=== PATIENT | male | born 1985 | race Caucasian/White ===

== ENCOUNTER 2018-11-16 10:30 | Outpatient (RCR) | payer OTHER, SELFPAY ==
[2018-08-17 09:17] VITALS: BMI 36.2
--- NOTE | 2018-09-22 11:08 | HP.PTEVAL ---
Patient's Visit Information CARLOS ENRIQUE SANCHEZ is a 33 year old M referred to Physical Therapy by Lars Paul MD with a diagnosis of BACK AND LEG PAIN. Date of Evaluation: 09/22/18 Physical Therapist: Raya Cadena PT, Cert MDT - Visit Plan Frequency: 2-3x /Week Duration: 4-6 Weeks Plan: AQUATIC THERAPY FOR PAIN RELIEF, POSTURE CORRECTION/STRENGTHENING, INSTRUCTION IN APPROPRIATE BODY MECHANICS AND ACTIVITY MODIFICATIONS. DLS STARTING WITH A NEUTRAL SPINE PROGRESSING ROM TOLERATED. ROSEANN LE ROM, STRETCHING AND STRENGTHENING. HEP INSTRUCTION. 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 TRAVELS BETWEEN THE STORES. PLAYS BASKETBALL. GOLF. Disability: NO. Present symptoms: LOW BACK, RIGHT BUTTOCK/HIP, RIGHT THIGH AND RIGHT LEG PAIN. NUMBNESS AND TINGLING IN RIGHT LEG TOO. NO LLE SX'S. Present since: JUNE 2017. END OF MAR 2018 AGAIN. SAME SINCE MAR. Pain Scale: WORST 7/10, LEAST 3/10. Currently: 3/10. Commenced as a result of: NO APPARENT REASON. Symptoms at onset: RIGHT LEG. Worse: PROLONGED SITTING, ANYTHING FOR A LONG PERIOD OF TIME. WEED EATING. ANY STRENUOUS WORK. Better: LYING DOWN. Disturbed sleep: YES. Previous history/Previous treatment: ONE CHIRO VISIT LAST EPISODE - HELPED. ABOUT A MONTH AGO WENT TO DR. ASHRAF ABOUT 6 TIMES - DIDN'T HELP. DR. PAUL - MATILDE LAST - DEFINATELY HELPED A LOT FOR ABOUT 3 DAYS AND IS STILL BETTER THAN IT WAS BEFORE THE INJECTION. NO OTHER SHOTS PLANNED AT THIS POINT. FOLLOW UP WITH TY PAUL PENDING THE END OF THIS MONTH THOUGH. Coughing/sneezing/straining: POSITIVE. Gait: BETTER SINCE SHOT BUT STILL HAS SOME DIFFICULTY GETTING UP STRAIGHT AND INITIATING GAIT AFTER SITTING. FINE AFTER A FEW STEPS. Difficulty initiating urinatin: NO. Accidents: NO. Unexplained weight loss: NO. Imaging: LUMBAR X-RAY - X-Ray Report: Impression. Impression: Patients Name: CARLOS ENRIQUE SANCHEZ. : 1985. Views Submitted: a routine lumbar series was accomplished on 08/17/18 at [facility]. The lumbar series reveals in the AP view right spinous process rotation from L2 to L5. The clement and sacrum appear to be level. There is a 6th lumbar vertebra, transitional segment. The lateral lumbar view demonstrates a mildly hypolordotic lumbar spine. The disc space at S1 is decreased. Transverse processes appear to be consistent bilaterally. No indication of fracture or instability. IMPRESSION: 1. Transitional lumbar vertebra. Dictated by. Performing Provider: Estela Ashraf. MRI HAS BEEN ORDERED BY DR. PAUL AND PENDING. PMH: UNREMARKABLE. Recent major surgery: NO. PLOF (Prior Level of Function): UNLIMITED. PLAYING BASKETBALL A COUPLE TIMES A WEEK UNTIL APR 2018 - Objective Sitting/Standing Posture: POOR. Lordosis: NORMAL. Lateral shift: NO. Relevant shift: N/A. Active Correction of posture: WORSE. Other Observations: INDEP GAIT WITH GOOD CADANCE. DIFFICULTY TRANSITIONING FROM SIT TO STAND AND INITIATING GAIT. Motor deficit: ROSEANN LE'S 5/5 WITH MMT'ING EXCEPT RIGHT HIP 4-/5, LEFT 4/5. Sensory deficit: ROSEANN LE LIGHT TOUCH SENSATION INTACT AND SYMMETRICAL. ROM deficit: TIGHT ROSEANN LE HS'S RIGHT > LEFT. Reflexes: 2/3 ROSEANN LE'S. Dural Signs: NEGATIVE LEFT AND POSITIVE RIGHT LE. Lumbar mvmt loss: flex - MIN - RIGHT LOW BACK PAIN. ext - MOD - CENTRAL LB TIGHTNESS. R SG - MOD. L SG - MIN. Core strength: POOR. Palpation: TENDERNESS WITH PALPATION OF THE L45S1 REGION. - Goals Goal 1:: DECREASE C/O BACK AND LEG PAIN Goal Time Frame: 4-6 Weeks Goal 2:: IMPROVE PERSONAL CARE, LIFTING, SITTING, STANDING, SLEEP SOCIAL LIFE, TRAVEL AND WORK FUNCTION. Goal Time Frame: 4-6 Weeks Goal 3:: INSTRUCT IN PROPHYLAXIS Goal Time Frame: 4-6 Weeks - Rehabilitation Potential Rehabilitation Potential: Fair - Anticipated Interventions Patient/Client Instruction: Educate patient on: Condition, Plan of Care, Risk Factors, Benefits of Fitness Program For the Purpose of:: To improve self management Therapeutic Exercise to Include: Strength training, Body mechanics, Postural training, Dynamic Lumbar Stabilization For the Purpose of:: To decrease pain, To improve muscle performance and motor function, To increase tolerance to activity/condition/position, To improve ability of physical actions for home/community/work/leisure Thank you for the opportunity to evaluate your patient. For Medicare and Medicare HMO plans, please review the plan of care and approve it. It will need to be FAXED BACK to us at [phone] for Medicare purposes. For Medicare only, by signing this I certify the plan of care. Please let me know if there are questions or concerns regarding this plan of care. Physician Signature: Date:
--- NOTE | 2018-10-22 11:09 | HP.PTEVAL_ITS ---
Patient's Visit Information CARLOS ENRIQUE SANCHEZ is a 33 year old M referred to Physical Therapy by Lars Paul MD with a diagnosis of BACK AND LEG PAIN. Date of Evaluation: 09/22/18 Physical Therapist: Raya Cadena PT, Cert MDT - Visit Plan Frequency: 2-3x /Week Duration: 4-6 Weeks Plan: CONTINUE AQUATIC THERAPY 3 TIMES A WEEK X 3 WEEKS AND CONSIDER TRANSITION TO LAND PT BASED ON RESULTS OF NEXT MATILDE. PATIENT IS AGREEABLE. 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 PLAYS BASKETBALL. GOLF. Disability: NO. Present symptoms: LOW BACK, RIGHT BUTTOCK/HIP, RIGHT THIGH AND RIGHT LEG PAIN. NUMBNESS AND TINGLING IN RIGHT LEG TOO. NO LLE SX'S. Present since: JUNE 2017. END OF MAR 2018 AGAIN. SAME SINCE MAR. Pain Scale: WORST 7/10, LEAST 3/10. Currently: 3/10. Commenced as a result of: NO APPARENT REASON. Symptoms at onset: RIGHT LEG. Worse: PROLONGED SITTING, ANYTHING FOR A LONG PERIOD OF TIME. WEED EATING. ANY STRENUOUS WORK. Better: LYING DOWN. Disturbed sleep: YES. Previous history/Previous treatment: ONE CHIRO VISIT LAST EPISODE - HELPED. ABOUT A MONTH AGO WENT TO DR. ASHRAF ABOUT 6 TIMES - DIDN'T HELP. DR. PAUL - MATILDE LAST TU - DEFINATELY HELPED A LOT FOR ABOUT 3 DAYS AND IS STILL BETTER THAN IT WAS BEFORE THE INJECTION. NO OTHER SHOTS PLANNED AT THIS POINT. FOLLOW UP WITH TY PAUL PENDING THE END OF THIS MONTH THOUGH. Coughing/sneezing/straining: POSITIVE. Gait: BETTER SINCE SHOT BUT STILL HAS SOME DIFFICULTY GETTING UP STRAIGHT AND INITIATING GAIT AFTER SITTING. FINE AFTER A FEW STEPS. Difficulty initiating urinatin: NO. Accidents: NO. Unexplained weight loss: NO. Imaging: LUMBAR X-RAY - X-Ray Report: Impression. Impression: Patients Name: CARLOS ENRIQUE SANCHEZ. : 1985. Views Submitted: a routine lumbar series was accomplished on 08/17/18 at [facility]. The lumbar series reveals in the AP view right spinous process rotation from L2 to L5. The clement and sacrum appear to be level. There is a 6th lumbar vertebra, transitional segment. The lateral lumbar view demonstrates a mildly hypolordotic lumbar spine. The disc space at S1 is decreased. Transverse processes appear to be consistent bilaterally. No indication of fracture or instability. IMPRESSION: 1. Transitional lumbar vertebra. Dictated by. Performing Provider: Estela Ashraf. MRI HAS BEEN ORDERED BY DR. PAUL AND PENDING. PMH: UNREMARKABLE. Recent major surgery: NO. PLOF (Prior Level of Function): UNLIMITED. PLAYING BASKETBALL A COUPLE TIMES A WEEK UNTIL APR 2018 - Pain R LB Pain Intensity (Out of 10): 1 Comment: TIGHTNESS R LE Pain Intensity (Out of 10): 2 Comment: tingling - Objective Sitting/Standing Posture: POOR. Lordosis: NORMAL. Lateral shift: NO. Relevant shift: N/A. Active Correction of posture: WORSE. Other Observations: INDEP GAIT WITH GOOD CADANCE. DIFFICULTY TRANSITIONING FROM SIT TO STAND AND INITIATING GAIT. Motor deficit: ROSEANN LE'S 5/5 WITH MMT'ING EXCEPT RIGHT HIP 4-/5, LEFT 4/5. Sensory deficit: ROSEANN LE LIGHT TOUCH SENSATION INTACT AND SYMMETRICAL. ROM deficit: TIGHT ROESANN LE HS'S RIGHT > LEFT. Reflexes: 2/3 ROSEANN LE'S. Dural Signs: NEGATIVE LEFT AND POSITIVE RIGHT LE. Lumbar mvmt loss: flex - MIN - RIGHT LOW BACK PAIN. ext - MOD - CENTRAL LB TIGHTNESS. R SG - MOD. L SG - MIN. Core strength: POOR. Palpation: TENDERNESS WITH PALPATION OF THE L45S1 REGION. - Goals Goal 1:: DECREASE C/O BACK AND LEG PAIN Goal Time Frame: 4-6 Weeks Goal 2:: IMPROVE PERSONAL CARE, LIFTING, SITTING, STANDING, SLEEP SOCIAL LIFE, TRAVEL AND WORK FUNCTION. Goal Time Frame: 4-6 Weeks Goal 3:: INSTRUCT IN PROPHYLAXIS Goal Time Frame: 4-6 Weeks - Rehabilitation Potential Rehabilitation Potential: Fair - Anticipated Interventions Patient/Client Instruction: Educate patient on: Condition, Plan of Care, Risk Factors, Benefits of Fitness Program For the Purpose of:: To improve self management Therapeutic Exercise to Include: Strength training, Body mechanics, Postural training, Dynamic Lumbar Stabilization For the Purpose of:: To decrease pain, To improve muscle performance and motor function, To increase tolerance to activity/condition/position, To improve ability of physical actions for home/community/work/leisure Thank you for the opportunity to evaluate your patient. For Medicare and Medicare HMO plans, please review the plan of care and approve it. It will need to be FAXED BACK to us at [phone] for Medicare purposes. For Medicare only, by signing this I certify the plan of care. Please let me know if there are questions or concerns regarding this plan of care. Physician Signature: Date:
--- NOTE | 2018-10-22 11:12 | HP.PTREVAL ---
Lars Dick MD, It has been my pleasure to treat CARLOS ENRIQUE SANCHEZ over the last 10 visits for BACK AND LEG PAIN. Please see the progress note below for an update on the physical therapy plan of care! Subjective: PATIENT REPORTS THERAPY HAS DEFINATELY HELPED. THE SX'S ARE STILL THERE BUT LESS INTENSE. ABLE TO SIT LONGER NOW BUT AVOIDING PROLONGED SITTING. 2ND MATILDE PENDING NOV 09 2018. MRI REQUESTED. Objective/Function: PATIENT WOULD BENEFIT FROM CONTINUED AQUATIC THERAPY BASED O PROGRESS MADE AND ROOM FOR MORE IMPROVEMENT. PROGRESS HAS BEEN MADE TOWARD ALL GOALS BUT ESTRELLITA STILL HAS SIGNIFICANT BACK AND RIGHT LE SX'S. OSWESTRY SCORE HAS NOT CHANGED. INDEP GAIT WITH GOOD CADANCE. STILL SOME DIFFICULTY TRANSITIONING FROM SIT TO STAND AND INITIATING GAIT. Motor deficit: ROSEANN LE'S 5/5 WITH MMT'ING EXCEPT RIGHT HIP 4/5. ROM deficit: TIGHT ROSEANN LE HS'S RIGHT > LEFT. Dural Signs: NEGATIVE LEFT AND POSITIVE RIGHT LE. Lumbar mvmt loss: flex - MIN - RIGHT LOW BACK PAIN. ext - MOD - CENTRAL LB TIGHTNESS. R SG - MOD. L SG - MIN. Core strength: POOR TO FAIR. Palpation: NO TENDERNESS WITH PALPATION OF THE L45S1 REGION TODAY. Plan Plan: CONTINUE AQUATIC THERAPY 3 TIMES A WEEK X 3 WEEKS AND CONSIDER TRANSITION TO LAND PT BASED ON RESULTS OF NEXT MATILDE. PATIENT IS AGREEABLE. Goals Goal 1:: DECREASE C/O BACK AND LEG PAIN Goal Time Frame: 4-6 Weeks Goal Progress: Progressing Goal 2:: IMPROVE PERSONAL CARE, LIFTING, SITTING, STANDING, SLEEP SOCIAL LIFE, TRAVEL AND WORK FUNCTION. Goal Time Frame: 4-6 Weeks Goal Progress: Progressing Goal 3:: INSTRUCT IN PROPHYLAXIS Goal Time Frame: 4-6 Weeks Goal Progress: Progressing Anticipated Interventions Patient/Client Instruction: Educate patient on: Condition, Plan of Care, Risk Factors, Benefits of Fitness Program For the Purpose of:: To improve self management Therapeutic Exercise to Include: Strength training, Body mechanics, Postural training, Dynamic Lumbar Stabilization For the Purpose of:: To decrease pain, To improve muscle performance and motor function, To increase tolerance to activity/condition/position, To improve ability of physical actions for home/community/work/leisure Please do not hesitate to contact me at [phone] by phone or if you have questions or concerns regarding this new plan of care! Sincerely, Raya Cadena, PT, Cert MDT
--- NOTE | 2018-11-17 10:46 | HP.PT.NRP ---
HP - Discharge Summary (1) - Patient Information CARLOS ENRIQUE SANCHEZ was seen in my office for initial evaluation on 09/22/18. The following Plan of Care was established for this patient: Initial Frequency: 2-3x /Week Initial Duration: 4-6 Weeks - Anticipated Interventions Patient/Client Instruction: Educate patient on: Condition, Plan of Care, Risk Factors, Benefits of Fitness Program For the Purpose of:: To improve self management Therapeutic Exercise to Include: Strength training, Body mechanics, Postural training, Dynamic Lumbar Stabilization For the Purpose of:: To decrease pain, To improve muscle performance and motor function, To increase tolerance to activity/condition/position, To improve ability of physical actions for home/community/work/leisure This patient was last seen in our office . Pertinent comments regarding their Physical therapy will appear below: PATIENT CANCELLED LAST SCHEDULED VISIT STATING HIS INSURANCE AND HE WILL CONTACT US TO CONTINUE PT IF FURTHER THERAPY IS ORDERED AND TAKING INTO CONSIDERATION WHEN HE HAS INSURANCE AGAIN. THIS PT RECOMMENDED FOLLOW UP WITH DR. PAUL AND GRAZYNA JOHNSON TOLERATED. PATIENT AGREEABLE. At this point I will be discontinuing this patient from physical therapy. I would be happy to see this patient again in the future if found appropriate by the physician. Thank you! Raya Cadena, PT, Cert MDT
== END 2018-11-16 19:00 | disposition home or self-care (01) ==
LOC: PT 10:30
PROVIDERS: Referring Provider Anesthesiology Pain Medicine; Visit Provider Anesthesiology Pain Medicine
DX: M54.9 Dorsalgia, unspecified (principal); M79.604 Pain in right leg
CPT/HCPCS: 97113; 97161; 97530

== ENCOUNTER → 2019-01-24 16:44 | Outpatient (CLI) | payer OTHER, SELFPAY ==
[2018-08-17 09:17] VITALS: BMI 36.2
--- NOTE | 2019-01-24 16:51 | MRI_ITS ---
STUDY: MRI LUMBAR SPINE WITHOUT CONTRAST REASON FOR EXAM: Male, 33 years old. Low back pain radiating to right leg TECHNIQUE: Standardized fat and water weighted pulse sequences were obtained in the sagittal and axial planes. COMPARISON: Spine series August 17, 2018 FINDINGS: T12-L1: Normal endplates. Normal disc height, hydration and morphology. Normal bilateral facet joints. Normal central canal and bilateral lateral recesses. Normal bilateral intervertebral neural foramina. Normal lumbar lordosis. There is no substantial scoliosis. Normal conus medullaris that terminates at T12-L1 L1-2: Normal endplates. Normal disc height, hydration and morphology. Normal bilateral facet joints. Normal central canal and bilateral lateral recesses. Normal bilateral intervertebral neural foramina. L2-3: Normal endplates. Normal disc height, hydration and small right paracentral disc protrusion.. Normal bilateral facet joints. Normal central canal and bilateral lateral recesses. Normal bilateral intervertebral neural foramina. L3-4: Normal endplates. Normal disc height, hydration and minor annular bulge with tiny central disc protrusion.. Normal bilateral facet joints. Normal central canal and bilateral lateral recesses. Normal bilateral intervertebral neural foramina. L4-5: Degenerative endplate changes.. Normal disc height, desiccation and minor annular bulge with moderate sized broad-based right paracentral/posterolateral disc extrusion with inferior migration of disc fragment.. Mild facet arthropathy.. Normal central canal. Moderate right lateral recess and more severe subarticular stenosis.. Mild bilateral neural foraminal encroachment. L5-S1: Degenerative endplate changes. Normal disc height, desiccation and minor bulging disc osteophyte complex with small right posterolateral/foraminal disc/osteophyte protrusion. Mild facet arthropathy.. Normal central canal. Moderate right lateral recess stenosis and moderate to severe neuroforaminal stenosis. Moderate left neuroforaminal encroachment Normal visualized sacral ala. Normal visualized paraspinous soft tissue structures. Findings are similar to that seen on recent radiographic study considering differences in imaging technique MRI/Spine Lumbar (Routine) IMPRESSION: No evidence for acute fracture or other significant bony pathology. Mild spondylosis Spinal stenosis at L4-5 and L5-S1 greater on the right secondary to disc disease and bony hypertrophy Electronically Signed: Darren Payton MD at 18:34 EST , Service support ,
== END ==
PROVIDERS: Referring Provider Anesthesiology Pain Medicine; Visit Provider Anesthesiology Pain Medicine
DX: M54.9 Dorsalgia, unspecified (principal); M79.604 Pain in right leg
CPT/HCPCS: 72148

== ENCOUNTER → 2019-03-01 14:25 | Outpatient (CLI) | payer OTHER, SELFPAY ==
[2019-03-01 14:09] VITALS: BMI 36.2
--- NOTE | 2019-03-01 14:34 | RAD_ITS ---
STUDY: X-RAY - LUMBAR SPINE REASON FOR EXAM: Male, 33 years old. Pain TECHNIQUE: 4 view(s) of the lumbar spine were obtained. COMPARISON: August 17, 2018 FINDINGS: Neutral demonstrates an stable exaggerated physiologic lordosis. The flexion view shows no change. The extension view shows slightly greater hyperextension. There is mild levoscoliosis demonstrated in the lumbar spine. There is disc space narrowing and endplate sclerosis L4-L5 L5-S1 with probable neural foraminal narrowing. RAD/L/S Spine Min 4 Views IMPRESSION: Degenerative change. No visualized instability with flexion and extension views provided. Electronically Signed: Kylah Daly MD at 18:00 EST Tel , Service support ,
== END ==
PROVIDERS: Referring Provider Orthopaedic Surgery; Visit Provider Orthopaedic Surgery
DX: M54.5 Low back pain (principal)
CPT/HCPCS: 72110

== ENCOUNTER → 2019-05-31 10:48 | Outpatient (CLI) | payer OTHER, SELFPAY ==
[2019-05-03 08:56] VITALS: BMI 36.2
--- NOTE | 2019-05-31 10:55 | RAD_ITS ---
STUDY: X-RAY - LUMBAR SPINE REASON FOR EXAM: Male, 33 years old. Low back pain. TECHNIQUE: 2 view(s) of the lumbar spine were obtained. COMPARISON: 03/01/2019. FINDINGS: 6 lumbar type vertebral bodies. 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 Normal lumbar lordosis. Mild anterior wedging of the upper T12 vertebral body is presumably from remote injury and unchanged. No suspicious acute fractures. There is no substantial scoliosis. There is a normal alignment of the vertebrae. Normal lumbar vertebral bodies and endplates. Mild L5-S1 disc space height narrowing. Normal remaining lumbar disc space heights. The soft tissue structures are unremarkable. RAD/Lumbar Spine 2 or 3 Views IMPRESSION: 1. 6 lumbar type vertebral bodies. 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 2. Mild anterior wedging of the upper T12 vertebral body is most likely from remote injury. This is unchanged. 3. Mild L5-S1 disc space height narrowing. 4. No acute fracture or acute osseous abnormality of the lumbar spine. 5. No significant interval change when compared to 03/01/2019. Electronically Signed: Arthur Hassan MD at 9:16 EDT , Service support ,
== END ==
PROVIDERS: PCP Internal Medicine; Referring Provider Orthopaedic Surgery; Visit Provider Orthopaedic Surgery
DX: Z98.890 Other specified postprocedural states (principal)
CPT/HCPCS: 72100

== ENCOUNTER 2019-06-01 09:30 | Outpatient (RCR) | payer OTHER, SELFPAY ==
[2019-05-03 08:56] VITALS: BMI 36.2
--- NOTE | 2019-05-10 11:19 | HP.PTEVAL ---
Patient's Visit Information CARLOS ENRIQUE SANCHEZ is a 33 year old M referred to Physical Therapy by Kriss Hutchinson MD with a diagnosis of S/P R L4-S1 DECOMPRESSION 03/29/19. Date of Evaluation: 05/10/19 Physical Therapist: Raya Cadena, PT, Cert MDT - Visit Plan Frequency: 2-3x /Week Duration: 4-6 Weeks Plan: POSTURE CORRECTION/STRENGTHENING, INSTRUCTION IN APPROPRIATE BODY MECHANICS AND ACTIVITY MODIFICATIONS. DLS STARTING WITH A NEUTRAL SPINE PROGRESSING ROM TOLERATED. ROSEANN LE ROM, STRETCHING AND STRENGTHENING. HEP INSTRUCTION. NO BENDING, LIFTING OR TWISTING IN COMBINATION. 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 Disability: NO. Present symptoms: RIGHT QUAD NUMBNESS. SOME LOW BACK PAIN. RIGHT LEG WEAKNESS AND TIGHTNESS. SOME RIGHT NUMBNESS FLARE UP YESTERDAY FOR NO APPARENT REASON. Present since: SEPTEMBER 2017 - GOLFING, RECOVERED UNTIL MAR 2018 GOT WORSE WITH BASKETBALL AND HASN'T BEEN ABLE TO RESUME EX SINCE. Pain Scale: WORST 3/10, LEAST 0/10. Currently: 0/10 - IMPROVING. Worse: PROLONGED STANDING, SUPINE LYING AT NIGHT. HAS BEEN BEING VERY CAREFUL. Better: SITTING DOWN. Disturbed sleep: YES - BUT NOT FOR A FEW NIGHTS NOW. Previous history/Previous treatment: ABOUT A 6 WEEKS OF PT BEFORE SURGERY. PAIN MGMT. Treatment this episode: JUST RESTING MAINLY SINCE SURGERY. Current Restrictions: OK TO START LIFTING AT 6 WKS WHICH IS TODAY BUT DONT LIFT AND TWIST AT THE SAME TIME. NO BACK BRACE. Coughing/sneezing/straining: NEGATIVE. Gait: NORMAL - I FEEL GOOD. Difficulty initiating urinatin: NO. Accidents: NO. Unexplained weight loss: NO. Imaging: MRI BEFORE SURGERY. NO IMAGING SINCE SURGERY. PMH: UNREMARKABLE. Recent major surgery: UNREMARKABLE. PLOF (Prior Level of Function): UNLIMITED BEFORE MAR 2018 - Objective Sitting/Standing Posture: POOR. SLOUCHED WITH RS'S AND FH. Lordosis: REDUCED. Lateral shift: NO. Relevant shift: N/A. Active Correction of posture: GOOD. Other Observations: INDEP GAIT AND TRANSFERS WITH NO GROSS DEVIATIONS NOTED. Motor deficit: ROSEANN LE'S 5/5 WITH MMT'ING. Sensory deficit: NO. ROM deficit: ROSEANN HS AND GASTROC SOLEUS COMPLEX TIGHTNESS RIGHT > LEFT. Reflexes: NT. Dural Signs: NEGATIVE ROSEANN LE'S. Lumbar mvmt loss: flex - MOD. ext - JOSHUA. R SG - MOD. L SG - MOD. MILD LBP WITH LUMBAR ROM TESTING ALL PLANES. Core strength: POOR. Palpation: INCEISION LOOKS GOOD WITHOUT ANY SIGNS OF INFECTION. OTHER: SLS ROSEANN LE'S WITHOUT UE ASSIST X > 30 SEC EA. TREATMENT: NEUROMUSCULAR REEDUCATION - RETRAINING OF MVMT AND POSTURE FOR SITTING, LYING AND STANDING ACTIVITIES. HEP OF SUPINE ISO ABDOMINALS, SUPINE ROSEANN LE DURAL STRETCHING, SKTC AND LTR GIVEN FOR 6-8 TIMES A DAY TOLERATED THROUGH COMFORTABLE ROM. - Goals Goal 1:: DECREASE C/O LOW BACK AND RIGHT LE SX'S. Goal Time Frame: 6-8 Weeks Goal 2:: IMPROVE BENDING, LIFTING, SITTING, STANDING, SOCIAL LIFE, TRAVEL AND WORK FUNCTION Goal Time Frame: 6-8 Weeks Goal 3:: INSTRUCT IN PROPHYLAXIS Goal Time Frame: 6-8 Weeks - Rehabilitation Potential Rehabilitation Potential: Good - Anticipated Interventions Patient/Client Instruction: Educate patient on: Condition, Plan of Care, Risk Factors, Benefits of Fitness Program For the Purpose of:: To improve self management Therapeutic Exercise to Include: Strength training, Body mechanics, Postural training, Flexibilty training, Dynamic Lumbar Stabilization For the Purpose of:: To decrease pain, To increase ROM, To improve muscle performance and motor function, To increase tolerance to activity/condition/position, To improve ability of physical actions for home/community/work/leisure Thank you for the opportunity to evaluate your patient. For Medicare and Medicare HMO plans, please review the plan of care and approve it. It will need to be FAXED BACK to us at [phone] for Medicare purposes. For Medicare only, by signing this I certify the plan of care. Please let me know if there are questions or concerns regarding this plan of care. Physician Signature: Date:
--- NOTE | 2019-06-01 10:12 | HP.PTDCSUM ---
HP - PT D/C Summary It has been my pleasure to treat CARLOS ENRIQUE SANCHEZ referred by Kriss Randle MD, with the diagnosis of S/P R L4-S1 DECOMPRESSION 03/29/19 for a total of 10 visit(s). Discharge Date: Please see the following information for a summary of their discharge status. - Subjective Subjective: FOLLOW UP WITH DR. RANDLE YESTERDAY. SHE RELEASED HIM UNTIL FOLLOW UP IN 3 MONTHS. NO RESTRICTIONS NOW. OK TO RUN AND GOLF TOLERATED. LOOKING INTO GYM IN [place] TO CONTINUE INDEP EX. (8 MIN FROM HIS HOUSE - HP IS 30 MIN). - Pain LB Pain Intensity (Out of 10): 1 - Overall Improvement % Improvement: 90 - Objective Objective/Function: PATIENT WAS SEEN TODAY FOR RE-ASSESSMENT OF PROGRESS TOWARD THE SET PT GOALS AND THE NEED FOR FURTHER PHYSICAL THERAPY VS READINESS FOR DISCHARGE. PATIENT HAS PROGRESSED NICELY WITH PT AND ALL GOALS HAVE BEEN MET. UPON EXAM TODAY: Lumbar mvmt loss: flex - MIN. ext - MOD. R SG - MIN. L SG - NIL. PATIENT IS INDEP WITH HOME AND GYM EX' PROGRAMS AND IS APPROPRIATE FOR DISCHARGE. - Goals Goal 1:: DECREASE C/O LOW BACK AND RIGHT LE SX'S. Goal Progress: Goal Met Goal 2:: IMPROVE BENDING, LIFTING, SITTING, STANDING, SOCIAL LIFE, TRAVEL AND WORK FUNCTION Goal Progress: Goal Met Goal 3:: INSTRUCT IN PROPHYLAXIS Goal Progress: Goal Met - Plan Plan: D/C TO INDEP EX. PATIENT AGREEABLE. - D/C Information If there are questions or concerns regarding this patient's physical therapy, please feel free to call me at [phone]. Thank you for the referral of this patient. Sincerely, Raya Cadena, PT, Cert MDT
== END 2019-06-01 19:00 | disposition home or self-care (01) ==
LOC: PT 09:30
PROVIDERS: PCP Internal Medicine; Referring Provider Orthopaedic Surgery; Visit Provider Orthopaedic Surgery
DX: Z98.890 Other specified postprocedural states (principal)
CPT/HCPCS: 97110; 97112; 97161; 97164; 97530

== ENCOUNTER → 2019-08-30 10:54 | Outpatient (CLI) | payer OTHER, SELFPAY ==
[2019-05-31 10:54] VITALS: BMI 36.2
--- NOTE | 2019-08-30 10:55 | RAD_ITS ---
HISTORY: LOW BACK PAIN. LAMINECTOMY X 5 MONTHS ADDITIONAL HISTORY: None provided. TECHNIQUE: 05/31/2019 Number of images including paperwork: 2 COMPARISON: Lumbar spine 2 views FINDINGS: VERTEBRAE: No acute fracture. VERTEBRAL ALIGNMENT: No traumatic subluxation. Mild left convex lumbar curvature. DISKS AND JOINTS: Mild disc space narrowing at L5-S1. Facet arthropathy, most pronounced L4-S1. SOFT TISSUES: Unremarkable paraspinous soft tissues. RAD/Lumbar Spine 2 or 3 Views IMPRESSION: No acute findings. Degenerative changes appear similar. at 0245 Reported and signed by: Carey Orantes MD Electronically Signed: Carey Orantes MD at 2:45 EDT Tel , Service support ,
== END ==
PROVIDERS: PCP Internal Medicine; Referring Provider Orthopaedic Surgery; Visit Provider Orthopaedic Surgery
DX: M54.9 Dorsalgia, unspecified (principal)
CPT/HCPCS: 72100

== ENCOUNTER 2020-01-18 10:00 | Outpatient (RCR) | payer OTHER, SELFPAY ==
[2019-12-14 08:33] VITALS: BMI 36.2
--- NOTE | 2020-01-04 10:19 | HP.PTEVAL_ITS ---
Patient's Visit Information CARLOS ENRIQUE SANCHEZ is a 34 year old M referred to Physical Therapy by ABBI Segal with a diagnosis of LBP with R LE radiculopathy. Date of Evaluation: 01/04/20 Physical Therapist: Randolph Fajardo, PT, ATC - Visit Plan Frequency: 2-3x /Week Duration: 4-6 Weeks Plan: REIL, postural edu, neutral spine stab ex's, and HEP - Subjective DOS: March 2019. Had PT starting 8-9 weeks after surgery and ended in May. In October felt really tight for a week and a half, felt good after a week. At the end of October starting having sciatic pain. Labor Day weekend did a lot of standing and has felt pain ever since going into R calf and R hip. Pain seems to be worse in the mornings and best at night/evening. Standing for even short duration (5 mins) make pain worse. Sitting, trunk flexion, and lying flat supine or prone relieves pain. Tries to keep moving throughout the day, seems to help. Does not do strenuous work d/t pain. Would normally play basketball and golf a few times a week, but cannot d/t pain. Planned to get a gym membership after last round of PT but the pandemic occured and closed gyms. Sometimes has numbness in RLE below knee. Tried chiropractor previously but states it did not help. - Pain R hip Pain Intensity (Out of 10): 4 Pain Intensity Range: 4, 8 R calf Pain Intensity (Out of 10): 4 Pain Intensity Range: 4, 8 - Objective Neuro: B le sensation is WNL to light touch. B patellar reflex= 2/3. MMT: B LE's are grossly 5/5 throughout. L/S ROM: Pt is significantly limited with flexion. Pt is moderately limited with all other planes. Repeated movements: RFIS 10x1 peripheralised sx's into R calf. PRIYANKA 10x2 peripheralised sx's into R calf. REIL 10x2 decreased pain and centralised sx's - Goals Goal 1:: Decrease LBP x 50% to aid with sleep Goal Time Frame: 4-6 Weeks Goal 2:: Decrease the frequency and intensity of R LE radiculopathy x 50% to aid with tolerance for ambulation Goal Time Frame: 4-6 Weeks Goal 3:: I with HEP Goal Time Frame: 4-6 Weeks - Rehabilitation Potential Physical Therapy Diagnosis: Pt has LBP, limited L/S ROM, and R LE radiculopathy secondary to L/S disc derrangement Rehabilitation Potential: Good - Anticipated Interventions Patient/Client Instruction: Educate patient on: Condition, Plan of Care For the Purpose of:: To improve self management Therapeutic Exercise to Include: Strength training, Body mechanics, Postural training, Dynamic Lumbar Stabilization, Sabrina Exercises For the Purpose of:: To decrease pain, To increase ROM, To improve muscle pe rformance and motor function Thank you for the opportunity to evaluate your patient. For Medicare and Medicare HMO plans, please review the plan of care and approve it. It will need to be FAXED BACK to us at [phone] for Medicare purposes. For Medicare only, by signing this I certify the plan of care. Please let me know if there are questions or concerns regarding this plan of care. Physician Signature: Date:
--- NOTE | 2020-01-18 10:38 | HP.PTDCSUM ---
It has been my pleasure to treat CARLOS ENRIQUE SANCHEZ referred by ABBI Segal, with the diagnosis of LBP with R LE radiculopathy for a total of 6 visit(s). Discharge Date: Please see the following information for a summary of their discharge status. Subjective: No change in pain yet other than i am getting worse R hip Pain Intensity (Out of 10): 8 R calf Pain Intensity (Out of 10): 8 % Improvement: 0 Objective/Function: Pain has worsened over this time period. Pain is 8/10 this date. Pt continues to have R LE radiculopathy. Pt is not progressing with Rx Goal 1:: Decrease LBP x 50% to aid with sleep Goal Progress: Not Progressing Goal 2:: Decrease the frequency and intensity of R LE radiculopathy x 50% to aid with tolerance for ambulation Goal Progress: Not Progressing Goal 3:: I with HEP Goal Progress: Goal Met Plan: Discontinue, RTD If there are questions or concerns regarding this patient's physical therapy, please feel free to call me at [phone]. Thank you for the referral of this patient. Sincerely, Randolph Fajardo, PT, ATC
== END 2020-01-18 19:00 | disposition home or self-care (01) ==
LOC: PT 10:00
PROVIDERS: PCP Internal Medicine; Referring Provider Physician Assistant; Visit Provider Physician Assistant
DX: M54.31 Sciatica, right side (principal); Z87.39 Personal history of other diseases of the musculoskeletal system and connective tissue
CPT/HCPCS: 97014; 97110; 97161; 97164; G0283

== ENCOUNTER → 2020-01-26 17:00 | Outpatient (CLI) | payer OTHER, SELFPAY ==
[2019-12-14 08:33] VITALS: BMI 36.2
--- NOTE | 2020-01-26 17:01 | MRI_ITS ---
STUDY: MRI LUMBAR SPINE WITH AND WITHOUT CONTRAST REASON FOR EXAM: Male, 34 years old. lumbar radiculopathy, post laminectomy TECHNIQUE: Standardized fat and water weighted pulse sequences were obtained in the sagittal and axial planes. IV 27cc dotarem was administered for the contrast portion of the examination. COMPARISON: 24 January 2019 FINDINGS: Examination is mildly limited. Transverse pulse sequences are not fat saturated, making detection of contrast enhancement difficult. Lumbar spine is intact and aligned. Diffuse marrow is normal. There are minor endplate age-appropriate degenerative changes and subchondral type II marrow degeneration along the inferior L5. SI joints are normal. Paraspinous soft tissues are intact with prior right L4-L5 surgery.Normal visualized sacral ala. Conus medullaris limited to T12-L1. Cauda equina is normal. Epidural space is intact. T12-L1: Mildly degenerated endplates. Normal disc height, hydration and morphology. Normal bilateral facet joints. Normal central canal and bilateral lateral recesses. Normal bilateral intervertebral neural foramina. Normal lumbar lordosis. There is no substantial scoliosis. L1-2: Mildly degenerated endplates. Normal disc height, hydration and morphology. Normal bilateral facet joints. Normal central canal and bilateral lateral recesses. Normal bilateral intervertebral neural foramina. L2-3: Mildly degenerated endplates with right central small disc protrusion. Normal disc height, hydration and morphology. Normal bilateral facet joints. Normal central canal and bilateral lateral recesses. Normal bilateral intervertebral neural foramina. L3-4: Normal endplates. Normal disc height, decreased disc hydration and morphology. Normal bilateral facet joints. Normal central canal and bilateral lateral recesses. Normal bilateral intervertebral neural foramina. L4-5: Normal endplates. Normal disc height, hydration. There is a large right subarticular zone disc extrusion compressing the right traversing L5 nerve root in the lateral recess. There is surrounding granulation reactive tissue. Left lateral recess is patent. There is prior right decompression laminotomy and microdiscectomy. Foramina are patent bilaterally. L5-S1: Normal endplates. Normal disc height, decreased hydration. There is prior right decompression laminotomy and likely microdiscectomy. There is granulation tissue contacting the right L5 nerve root in the lateral recess.. There is right central and subarticular zone disc endplate osteophyte with mild right lateral recess stenosis. Left recess is patent. Normal bilateral facet joints. Canal is patent. There is mild bilateral foraminal stenosis. Compared to January 2019 disc herniations are larger and postsurgical changes are new. MRI/Spine Lumbar W/WO Contrast IMPRESSION: 1. Right L4-L5 subarticular recurrent moderately large disc extrusion with prior microdiscectomy and resultant lateral recess stenosis. 2. Small right L5-S1 L5-S1 subarticular recurrent disc protrusion without direct compressive effect with prior microdiscectomy. 3. Patent thecal sac. 4. No moderate or high-grade foraminal stenosis. Electronically Signed: Trish El, at 18:58 EST Tel , Service support ,
== END ==
PROVIDERS: PCP Internal Medicine; Referring Provider Orthopaedic Surgery; Visit Provider Orthopaedic Surgery
DX: M54.16 Radiculopathy, lumbar region (principal); Z98.890 Other specified postprocedural states
CPT/HCPCS: 72158; A9575

== ENCOUNTER 2020-05-21 10:00 | Outpatient (RCR) | payer OTHER, SELFPAY ==
[2020-03-09 10:19] VITALS: BMI 39.2
--- NOTE | 2020-04-06 12:27 | HP.PTEVAL_ITS ---
Patient's Visit Information CARLOS ENRIQUE SANCHEZ is a 34 year old M referred to Physical Therapy by Dr. Kriss Hutchinson MD with a diagnosis of s/p R L45 & L5-S1 microdecomp 03/29/19 & revision L45 discectomy 02/24/20. Date of Evaluation: 04/06/20 Physical Therapist: Raya Cadena, PT, Cert MDT - Visit Plan Frequency: 2x /Week Duration: 2-4 Months Plan: POSTURE CORRECTION/STRENGTHENING, INSTRUCTION IN APPROPRIATE BODY MECHANICS AND ACTIVITY MODIFICATIONS. DLS STARTING WITH A NEUTRAL SPINE PROGRESSING ROM TOLERATED IN 3 WEEKS. ROSEANN LE ROM, STRETCHING AND STRENGTHENING. HEP INSTRUCTION. 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 Disability: NO. Present symptoms: PATIENT REPORTS ALL SX'S ARE MILD AND INTERMITTENT. LOW BACK PAIN, TINGLING IN 3RD AND 4TH FINGERS AND BIG TOE THAT IS FLEETING AND USUALLY WHEN SITTING. ROSEANN THIGH NUMBNESS (ONE SIDE OR THE OTHER) IF STANDING TOO LONG. RIGHT POSTERIOR THIGH TIGHTNESS OR TENDERNESS WITH WALKING SOMETIMES THAT IS BRIEF. PRETTY MUCH SX FREE UNLESS HE IS UP TOO LONG OR SITTS TOO LONG. Present since: SEPTEMBER 2019. Pain Scale: WORST 2/10, LEAST 0/10. Currently: 0/10. 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 Symptoms at onset: LOW BACK TIGHTNESS. Worse: PROLONGED STANDING, WALKING AND SITTING. Better: CHANGE OF POSITION. Disturbed sleep: NO. Previous history/Previous treatment: s/p R L45 & L5-S1 microdecomp 03/29/19. PT BEFORE AND AFTER LAST SURGERY. ALSO PT BEFORE THIS MOST RECENT SURGERY WITHOUT SUCCESS. Coughing/sneezing/straining: NEGATIVE. Gait: TIME AND DISTANCE LIMITED DUE TO BACK AND LE SX'S. Difficulty initiating urinatin: NO. Accidents: NO. Unexplained weight loss: NO. Imaging: MRI BEFORE BACK SURGERY IN 2019. PMH: UNREMARKABLE. RESTRICTIONS: PATIENT REPORTS HE DOES NOT HAVE ANY RESTRICTIONS THAT HE IS AWARE OF BUT HE IS BEING VERY CAREFUL WITH BENDING, LIFTING AND TWISTING. - Objective Sitting/Standing Posture: POOR. Lordosis: REDUCED. Lateral shift: NO. Relevant shift: N/A. Active Correction of posture: NE. Other Observations: INDEP GAIT AND TRANSFERS. Motor deficit: ROSEANN LE'S 5/5 WITH MMT'ING EXCEPT RIGHT HIP 4/5. Sensory deficit: ROSEANN LE LIGHT TOUCH SENSATION INTACT AND SYMMETRICAL. ROM deficit: ROSEANN LE'S WFL EXCEPT TIGHT ROSEANN HIP FLEXORS. Reflexes: LLE 2/3, RIGHT QUAD ABSENT, RIGHT ACHILLES 2/3. Dural Signs: NEGATIVE RIGHT LE. NEGATIVE L LE. Lumbar mvmt loss: flex - MOD TO JOSHUA. ext - JOSHUA. R SG - MOD. L SG - MOD. Core strength: POOR. Palpation: INCISION LOOKS GOOD WITHOUT ANY SIGNS OF INFECTION. TREATMENT: NEUROMUSCULAR REEDUCATION - RETRAINING OF MVMT AND POSTURE FOR SITTING, LYING AND STANDING ACTIVITIES. INITIATED HEP WITH ISO ABDOMINALS AND ROSEANN LE DURAL STRETCHING. PATIENT GOT A STOMACH CRAMP WHEN HE FIRST TRIED TO DO THE ISO ABDOMINALS BUT IT SUBSIDED QUICKLY AND WAS ABLE TO PROCEED. SOME TINGLING PROVOKED IN RIGHT GREAT TOE WITH DURAL STRETCHING BUT SUBSIDED QUICKLY AND ABLE TO PROCEED. ALSO INSTRUCTED IN SEATED ROSEANN LE DURAL STRETCHING. INSTRUCTED PATIENT IN AVOIDANCE OF PERIPHERALIZATION OF SX'S. - Goals Goal 1:: DECREASE C/O BACK AND ROSEANN LE SX'S (RIGHT > LEFT). Goal Time Frame: 4-6 Weeks Goal 2:: IMPROVE LIFTING, WALKING, SITTING, STANDING, SOCIAL LIFE, TRAVEL, WORK AND HOMEMAKING FUNCTION. Goal Time Frame: 4-6 Weeks Goal 3:: INSTRUCT IN PROPHYLAXIS Goal Time Frame: 4-6 Weeks - Anticipated Interventions Patient/Client Instruction: Educate patient on: Condition, Plan of Care, Risk Factors, Benefits of Fitness Program For the Purpose of:: To improve self management Therapeutic Exercise to Include: Strength training, Body mechanics, Postural training, Flexibilty training, Neuromotor development, Dynamic Lumbar Stabilization, Scapular Strength/Stabilization For the Purpose of:: To decrease pain, To increase ROM, To improve muscle performance and motor function, To increase tolerance to activity/con dition/position, To improve ability of physical actions for home/community/work/leisure Thank you for the opportunity to evaluate your patient. For Medicare and Medicare HMO plans, please review the plan of care and approve it. It will need to be FAXED BACK to us at [phone] for Medicare purposes. For Medicare only, by signing this I certify the plan of care. Please let me know if there are questions or concerns regarding this plan of care. Physician Signature: Date:
== END 2020-05-21 19:00 | disposition home or self-care (01) ==
LOC: PT 10:00
PROVIDERS: PCP Internal Medicine; Referring Provider Orthopaedic Surgery; Visit Provider Orthopaedic Surgery
DX: Z98.890 Other specified postprocedural states (principal)
CPT/HCPCS: 97110; 97112; 97162; 97164

== ENCOUNTER 2020-05-31 15:32 | Emergency (ER) | payer OTHER, SELFPAY ==
[2020-05-31 15:32] VITALS: BP 138/105; PULSE 118; RESP 16; TEMP 36.1; O2SAT 96; BMI 37.5
[2020-05-31] MEDS: Orphenadrine 60 MG/2 ML Ampul IM (16:23)
[2020-05-31] MEDS: morphine 10 MG/ML Syringe 4 MG SC ×2 (16:25→17:25)
--- NOTE | 2020-05-31 16:59 | ED.VISSUMM ---
- ER Visit Summary Date of Service: 05/31/20 Chief Complaint: Back pain History of Present Illness: The patient is a 34 M with low back pain for about 10 days after he had physical therapy. He is status post L5 discectomy on February 23 of last [address] Dr. Hutchinson. He has been doing well. He says the pain has been constant since his therapy 10 days ago. He saw his surgeon 2 days ago. He was prescribed gabapentin and prednisone. They are not helping. No new symptoms since his previous visit. He has right lower back pain that radiates down his right leg into his right foot. No weakness or numbness. No loss of bowel or bladder. No fevers. Physical Examination: Afebrile and vital signs unremarkable. Right lumbar paraspinal muscle tenderness to palpation. Scar is well-healed and appears normal. No erythema or skin changes. Good strength, sensation, symmetric. Pulses strong and equal. Abdomen soft. Test Results: None indicated Emergency Department Course and Treatment: Patient was treated with morphine and Norflex. He was still having some pain afterwards, but was able to stand unassisted. Neurovascular exam remains intact. Nothing to suggest cord compression or infection. I spoke with his surgeon. He has no new symptoms or changes since his previous visit. I did not feel that emergent MRI is indicated. He has an outpatient MRI scheduled. I notified the surgeon that I would prescribe some pain medication and muscle relaxers. Precautions were discussed with the patient. He will return for any new or worsening issues. Treatment Plan: As above Disposition: Discharge Impression: Lumbar back pain This note was generated with [employer] dictation software. It may contain incorrect words, spelling, and punctuation that were not noted in review of the chart prior to signing ED Disposition - Plan for ED Patient: Referrals: Vanessa Tobar MD [Primary Care Provider] -
--- NOTE | 2020-05-31 17:01 | DCINST.ED_ITS ---
ED Disposition - Plan for ED Patient: Instructions: ED Back Pain (Acute or Chronic) Prescriptions: cycloBENZAPRine HCl [Flexeril] 10 mg PO TID PRN #20 tab PRN Reason: Muscle Spasm Prescription Printed Hydrocodone Bitart/Apap 5-325 [[place] 5MG-325MG] 1 tab PO Q6H PRN PRN 3 Days #12 tab PRN Reason: Pain Prescription Printed Referrals: Kriss Hutchinson MD [STAFF PHYSICIAN] -
[2020-05-31 18:19] VITALS: PULSE 121; RESP 21; O2SAT 98
== END 2020-05-31 18:20 | disposition home or self-care (01) ==
LOC: ED 16:00
PROVIDERS: Emergency Provider Emergency Medicine; PCP Internal Medicine
DX: M54.5 Low back pain (principal)
CPT/HCPCS: 99283

== ENCOUNTER → 2020-06-06 08:15 | Outpatient (CLI) | payer OTHER, SELFPAY ==
[2020-05-31 15:32] VITALS: BMI 37.5
--- NOTE | 2020-06-06 08:15 | MRI_ITS ---
STUDY: MRI LUMBAR SPINE WITH AND WITHOUT CONTRAST REASON FOR EXAM: Male, 34 years old. pain TECHNIQUE: Standardized fat and water weighted pulse sequences were obtained in the sagittal and axial planes. IV dotarem 29ml was administered for the contrast portion of the examination. COMPARISON: X-ray 05/29/2020, MRI 01/26/2020 FINDINGS: T12-L1: Normal endplates. Normal disc height, hydration and morphology. Normal bilateral facet joints. Normal central canal and bilateral lateral recesses. Normal bilateral intervertebral neural foramina. Normal lumbar lordosis. There is no substantial scoliosis. Normal conus medullaris that terminates at the T12/L1. L1-2: Normal endplates. Normal disc height, hydration and morphology. Normal bilateral facet joints. Normal central canal and bilateral lateral recesses. Normal bilateral intervertebral neural foramina. L2-3: No change in the mild broad disc protrusion with a small central disc protrusion which produces mild spinal stenosis with mild bilateral recess stenosis and mild bilateral neural foraminal stenosis. L3-4: Mild left facet hypertrophy and moderate ligament flavum hypertrophy. No change in the mild broad disc protrusion which produces mild spinal stenosis with mild bilateral lateral recess stenosis and mild bilateral neural foraminal stenosis. L4-5: Status post right laminotomy with a residual recurrent large right paracentral and preforaminal disc protrusion which produces moderate spinal stenosis with severe right lateral recess stenosis with effacement the right L5 nerve root and mild right neural foraminal stenosis. Furthermore, enhancing scar tissue surrounds the right side of the thecal sac and the right L5 nerve root. L5-S1: No change in the mild broad disc protrusion which produces mild spinal stenosis and mild bilateral neural foraminal stenosis. Normal visualized sacral ala. Normal visualized paraspinous soft tissue structures. MRI/Spine Lumbar W/WO Contrast IMPRESSION: Postsurgical changes at L4/L5 with the residual or recurrent large right paracentral and preforaminal disc protrusion producing moderate spinal stenosis, severe right lateral recess stenosis with effacement of the right L5 nerve root and mild right neural foraminal stenosis. Electronically Signed: Patricio Lala MD at 14:30 EDT Tel , Service support ,
== END ==
PROVIDERS: PCP Internal Medicine; Referring Provider Orthopaedic Surgery; Visit Provider Orthopaedic Surgery
DX: Z98.890 Other specified postprocedural states (principal)
CPT/HCPCS: 72158; A9575

== ENCOUNTER 2021-02-08 12:00 | Outpatient (RCR) | payer OTHER, SELFPAY ==
--- NOTE | 2020-12-24 17:23 | HP.PTEVAL ---
Patient's Visit Information CARLOS ENRIQUE SANCHEZ is a 35 year old M referred to Physical Therapy by Dr. Kriss Randle MD with a diagnosis of S/P L4/5 PSDF WITH R TLIF (Transforaminal lumbar interbody fusion) 06/18/20.. Date of Evaluation: 12/24/20 Physical Therapist: Raya Cadena, PT, Cert MDT - Visit Plan Frequency: 2-3x /Week Duration: 4-6 Weeks Plan: *NEUTRAL SPINE ONLY*. *AVOID EVEN MILD PERIPHERALIZATION OF PAIN - MONITOR SX'S IN RIGHT LATERAL LOWER LEG*. *THIS IS PATIENTS 3RD LUMBAR SURGERY SINCE MAR 2019*. AQUATIC THERPAY FOR DECOMPRESSION, POSTURE CORRECTION/STRENGTHENING, INSTRUCTION IN APPROPRIATE BODY MECHANICS AND ACTIVITY MODIFICATIONS. DLS WITH A NEUTRAL SPINE TOLERATED. ROSEANN LE ROM, STRETCHING AND STRENGTHENING. HEP INSTRUCTION. 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 STARTING TO THROW THE BASEBALL WITH HIS BOYS AND BENDING OVER TO LIFE SUPPORT TECHNICIAN THE BALL IS STILL TOUGH. Present symptoms: R LOW BACK PAIN. RIGHT THIGH AND LEG PAIN. INTERMITTENT JABS OF PAIN IN RIGHT BIG TOE. PATIENT REPORTS THERE ARE TIMES THAT HE IS SYMPTOM FREE BUT SORE EVERY MORNING AND INTERMITTENT BACK AND LE SX'S OTHERWISE. Present since: MAR 2018. Pain Scale: WORST 4/10, LEAST 0/10. Currently: 0/10. Commenced as a result of: NO APPARENT REASON. Symptoms at onset: MAINLY RIGHT LE. Worse: PROLONGED STANDING AND WALKING IS THE WORST. PAIN TRANSITIONING SITTING TO STANDING. A LOT OF DRIVING. LIFTING AND BENDING. Better: LAYING DOWN. TAKING ALEVE ABOUT 2 TIMES A WEEK OR SO. Disturbed sleep: NO. Previous history/Previous treatment: 2 LAMINECTOMIES MAR 2019 AND FEB 2020 AND ONE FUSION MAY 2020. Treatment this episode: SELF TREATMENT ONLY. GETTING MORE ACTIVE GRADUALLY BUT NOT EXCERISING. Coughing/sneezing/straining: NO. Gait: AT TIMES RIGHT SIDE FEELS LIKE IT IS STUCK AND EVENTUALLY LOOSENS UP AND LETS GO. MOST OF THE WALKING FEELS NORMAL. Difficulty initiating urination: NO. Accidents: 3 WEEKS AFTER SURGERY HIT SOME ICE DRIVING WENT OFF INTO DITCH AND SPUN AROUND - NO APPARENT INJURY. Unexplained weight loss: NO. Imaging: MORE X-RAYS ABOUT 2 WEEKS AGO - LOOKED GOOD PER PATIENT PER DR. RANDLE. PMH: UNREMARKABLE. OTHER: PATIENT REPORTS THAT EVERY WEEK HE GETS BETTER. STATES HE DOES STILL GET PAIN ON THE OUTSIDE OF HIS LOWER LEG BUT WHEN HE LAYS DOWN IT GOES AWAY AFTER AWHILE. PATIENT REPORTS SURGEON SAID THE DISCS AROUND THE SURGERY ARE NOT GREAT. REPORTS HE TOLD DR. RANDLE ABOUT HIS BACK GETTING STUCK OR CATCHING SOMETIMES AND THAT SHE TOLD HIM SHE THINKS IT IS SCAR TISSUE AND THAT SHE HAD TO DO A LOT TO HIS BACK THIS SURGERY. PATIENT REPORTS HE DOES NOT HAVE ANY RESTRICTIONS AND THAT DR. RANDLE GAVE HIM A PT ORDER 3 MONTHS AGO BUT HE DIDN'T COME DUE TO POISON MAIN IN HIS THROAT AND WORK SITUATIONS SO HE ASKED FOR ANOTHER PT ORDER. - Objective THIS PATIENT AMBULATES INDEP'LY INTO PT WITH NO GROSS DEVICATIONS NOTED. HIS BALANCE IS GOOD. TRANSFERS ARE INDEP. Motor deficit: ROSEANN LE STRENGTH IS 5/5 WITH MMT'ING EXCEPT RIGHT HIP 4/5. Sensory deficit: ROSEANN LE LIGHT TOUCH SENSATION IS GROSSLY INTACT AND SYMMETRICAL. ROM deficit: MILD ROSEANN LE HS AND GASTROC SOLEUS COMPLEX TIGHTNESS. Dural Signs: NEGATIVE ROSEANN LE DURAL SIGNS. Lumbar mvmt loss: flex - MOD. ext - JOSHUA. R SG - MOD TO JOSHUA. L SG - MIN TO MOD. INCREASED RIGHT LBP WITH LUMBAR FLEXION ROM TESTING. Core strength: POOR. TREATMENT: NEUROMUSCULAR REEDUCATION - RETRAINING OF MVMT AND POSTURE FOR SITTING, LYING AND STANDING ACTIVITIES. A LOT OF THIS INFORMATION WAS A REVIEW FROM PRIOR EPISODES OF CARE WITH PT BUT UPDATED BASED ON CURRENT SITUATION. RE-INTODUCED SUPINE ISO ABDOMINALS AND BOTH SUPINE AND SEATED ROSEANN LE DURAL STRETCHING PATIENT HAS NOT BEEN EXERCISING. HE PERFORMED AND TOLERATED THESE WELL IN THE CLINIC TODAY. - Balance/Special Test Scores Oswestry Low Back Score: 10 - Goals Goal 1:: DECREASE C/O LOW BACK AND RIGHT LE SX'S. Goal Time Frame: 4-6 Weeks Goal 2:: IMPROVE LIFTING, WALKING, SITTING, STANDING, SOCIAL LIFE, TRAVEL, WORK AND HOMEMAKING FUNCTION. Goal Time Frame: 4-6 Weeks Goal 3:: INSTRUCT IN PROPHYLAXIS Goal Time Frame: 4-6 Weeks - Anticipated Interventions Patient/Client Instruction: Educate patient on: Condition, Plan of Care, Risk Factors For the Purpose of:: To improve self management Therapeutic Exercise to Include: Strength training, Body mechanics, Postural training, Flexibilty training, Neuromotor development, In an aquatic setting, Dynamic Lumbar Stabilization For the Purpose of:: To decrease pain, To increase ROM, To improve muscle performance and motor function, To increase tolerance to activity/condition/position, To improve ability of physical actions for home/community/work/leisure Thank you for the opportunity to evaluate your patient. For Medicare and Medicare HMO plans, please review the plan of care and approve it. It will need to be FAXED BACK to us at [phone] for Medicare purposes. For Medicare only, by signing this I certify the plan of care. Please let me know if there are questions or concerns regarding this plan of care. Physician Signature: Date:
--- NOTE | 2021-01-24 11:26 | HP.PTREVAL_ITS ---
Dr. Kriss Hutchinson MD, It has been my pleasure to treat CARLOS ENRIQUE SANCHEZ over the last 11 visits for S/P L4/5 PSDF WITH R TLIF (Transforaminal lumbar interbody fusion) 06/18/20.. Please see the progress note below for an update on the physical therapy plan of care! Subjective: PATIENT REPORTS HE WANTS TO CONTINUE IN THE POOL TO PROGRESS STRENGTHENING. STATES HE IS STILL UNDER A LOT OF STRESS AT WORK AND WORKING A LOT. IN THE LAST TWO WEEKS DEFINATELY GETTING STRONGER AND DOING BETTER. THE DAY AFTER THERAPY HE FEELS MORE ACHY IN HIS BACK WHEN HE WAKES UP BUT OVER ALL FEELS 100% THAT HE IS GETTING BETTER. CURRENTLY HE STILL FEELS ACHYNESS IN THE FRONT OF HIS RIGHT ANKLE. STATES THAT THE ACHYNESS GOES AWAY WHEN HE LOOSENS UP. REPORTS HE DOESN'T FEEL ANY PAIN IN THE POOL FOR THE MOST PART. FEELS HE IS DOING TOO MUCH STANDING AND WALKING AT WORK BUT UNAVOIDABLE. Objective/Function: PATIENT WAS SEEN TODAY FOR RE-ASSESSMENT OF PROGRESS TOWARD THE SET PT GOALS AND THE NEED FOR FURTHER PHYSICAL THERAPY VS READINESS FOR DISCHARGE. PATIENT IS A GOOD CANDIDATE TO CONTINUE AQUATIC THERAPY BASED ON PROGRESS MADE AND ROOM FOR FURTHER IMPROVEMENT. PATIENT AGREES. HE IS MAKING SLOW PROGRESS TOWARD ALL PT GOALS BUT IS STILL VERY WEAK IN HIS CORE AND STILL HAS RIGHT LE SX'S. UPON EXAM TODAY: Motor deficit: ROSEANN LE STRENGTH IS 5/5 WITH MMT'ING EXCEPT RIGHT HIP 4+/5. Sensory deficit: ROSEANN LE LIGHT TOUCH SENSATION IS GROSSLY INTACT AND SYMMETRICAL. ROM deficit: MILD ROSEANN LE HS AND GASTROC SOLEUS COMPLEX TIGHTNESS. Dural Signs: NEGATIVE ROSEANN LE DURAL SIGNS. Lumbar mvmt loss: flex - MIN TO MOD. ext - MOD. R SG - MOD. L SG - MIN. A LITTLE ACHE IN RIGHT LOW BACK COMING BACK UP FROM FLEX AND RIGHT SG. Core str ength: POOR Plan Plan: CONT BUT DECREASE TO 2X'S PER WEEK TO IMPROVE TOLERANCE TO AQUATIC THERAPY. pt would like to have further PT in the pool to continue to buile his strength. *NEUTRAL SPINE ONLY*. *AVOID EVEN MILD PERIPHERALIZATION OF PAIN - MONITOR SX'S IN RIGHT LATERAL LOWER LEG*. *THIS IS PATIENTS 3RD LUMBAR SURGERY SINCE MAR 2019*. AQUATIC THERPAY FOR DECOMPRESSION, POSTURE CORRECTION/STRENGTHENING, INSTRUCTION IN APPROPRIATE BODY MECHANICS AND ACTIVITY MODIFICATIONS. DLS WITH A NEUTRAL SPINE TOLERATED. ROSEANN LE ROM, STRETCHING AND STRENGTHENING. HEP INSTRUCTION. Balance/Gait/Functional tests - Balance/Special Test Scores Oswestry Low Back Score: 10 Goals Goal 1:: DECREASE C/O LOW BACK AND RIGHT LE SX'S. Goal Time Frame: 4-6 Weeks Goal Progress: Progressing Goal 2:: IMPROVE LIFTING, WALKING, SITTING, STANDING, SOCIAL LIFE, TRAVEL, WORK AND HOMEMAKING FUNCTION. Goal Time Frame: 4-6 Weeks Goal Progress: Progressing Goal 3:: INSTRUCT IN PROPHYLAXIS Goal Time Frame: 4-6 Weeks Goal Progress: Progressing Anticipated Interventions Patient/Client Instruction: Educate patient on: Condition, Plan of Care, Risk Factors For the Purpose of:: To improve self management Therapeutic Exercise to Include: Strength training, Body mechanics, Postural training, Flexibilty training, Neuromotor development, In an aquatic setting, Dynamic Lumbar Stabilization For the Purpose of:: To decrease pain, To increase ROM, To improve muscle performance and motor function, To increase tolerance to activity/condition/position, To improve ability of physical actions for home/community/work/leisure Please do not hesitate to contact me at [phone] by phone or if you have questions or concerns regarding this new plan of care! Sincerely, Raya Cadena, PT, Cert MDT
== END 2021-02-08 19:00 | disposition home or self-care (01) ==
LOC: PT 12:00
PROVIDERS: PCP Internal Medicine; Referring Provider Orthopaedic Surgery; Visit Provider Orthopaedic Surgery
DX: Z98.1 Arthrodesis status (principal)
CPT/HCPCS: 97112; 97113; 97162; 97164

== ENCOUNTER → 2024-07-19 | Outpatient (CLI) | payer OTHER, SELFPAY ==
--- NOTE | 2024-07-19 08:47 | RAD_ITS ---
PROCEDURE: L/S SPINE MIN 4 VIEWS 07/19/2024 REASON FOR EXAM: PAIN TECHNIQUE: Five views of the RUL and lumbar spine FINDINGS: Vertebrae: No acute fracture. Discs: Disc space heights are preserved. Alignment: Status post discectomy, interbody fusion, and transpedicular fixation at L4/L5 with anatomic alignment. Mild levoscoliosis centered at L2. Other: Facet hypertrophy in the lower lumbar spine. RAD/L/S Spine Min 4 Views IMPRESSION: Status post discectomy, interbody fusion, and transpedicular fixation at L4/L5 with anatomic alignment. Mild levoscoliosis with degenerative disc disease. Reading Location: [facility]
== END | disposition home or self-care (01) ==
LOC: RAD 08:37
PROVIDERS: PCP Internal Medicine; Referring Provider Student in an Organized Health Care Education/Training Program; Visit Provider Student in an Organized Health Care Education/Training Program
DX: M54.50 Low back pain, unspecified (principal)
CPT/HCPCS: 72110

== ENCOUNTER → 2024-07-28 | Outpatient (CLI) | payer OTHER, SELFPAY ==
--- NOTE | 2024-07-28 15:03 | MRI_ITS ---
PROCEDURE: SPINE LUMBAR W/WO CONTRAST 07/28/2024 REASON FOR EXAM: PAIN, HX OF PRIOR LAMINECTOMY/FUSION TECHNIQUE: Multiplanar and multisequence images were obtained without and with intravenous gadolinium-based contrast administration. Axial and sagittal T1 and T2 weighted images were obtained. Fat suppressed images were also obtained. CONTRAST: Clariscan VOLUME: 24mL gauge IV COMPARISON: Radiographs on 07/19/2024. FINDINGS: Diffuse spondylosis. Multilevel degenerative disc disease. There is normal signal intensity from the visualized bone marrow without evidence of replacement or acute fracture. The conus is unremarkable. Evaluation of the individual levels revealed the following: L5-S1: Grade 1 retrolisthesis measuring 4.6 mm. Mild diffuse disc bulge. Superimposed broad-based central/right paracentral disc protrusion measuring 5.2 mm. Bilateral facet joint arthropathy and ligamentum flavum hypertrophy. The spinal canal is not narrowed. Moderate right and mild left neural foramina narrowing. L4-5: Prior decompression and fusion. Enhancing epidural fibrosis in the surgical bed extending to the right anterolateral recess of the spinal canal. Secondary thickening enhancement of the exiting right L5 nerve root. Unremarkable transpedicular screws. Mild diffuse disc bulge. Bilateral facet joint arthropathy. The spinal canal is not narrowed. Mild bilateral neural foramina narrowing. L3-4: Moderate diffuse disc bulge. Bilateral facet joint arthropathy and ligamentum flavum hypertrophy. The spinal canal is mildly narrowed. Mild bilateral neural foraminal narrowing. L2-3: Mild diffuse disc bulge. Superimposed broad-based right paracentral disc protrusion measuring 3.2 mm. Bilateral facet joint arthropathy and ligamentum flavum hypertrophy. The spinal canal is not narrowed. Mild bilateral neural foramina narrowing. L1-2: Mild diffuse disc bulge. Bilateral facet joint arthropathy and ligamentum flavum hypertrophy. The spinal canal is not narrowed. Mild bilateral neural foraminal narrowing. Normal visualized paraspinous soft tissue structures. MRI/Spine Lumbar W/WO Contrast IMPRESSION: Spondylosis. Degenerative disc disease. Prior decompression and fusion at L4-L5. Enhancing epidural fibrosis in the surgical bed. Reading [facility] [id number]
== END | disposition home or self-care (01) ==
LOC: OPMRI 14:43
PROVIDERS: PCP Internal Medicine; Referring Provider Student in an Organized Health Care Education/Training Program; Visit Provider Student in an Organized Health Care Education/Training Program
DX: M51.360 Other intervertebral disc degeneration, lumbar region with discogenic back pain only (principal); Z98.1 Arthrodesis status
CPT/HCPCS: 72158; A9575